=== PATIENT | male | born 1980 | race Caucasian/White ===

== ENCOUNTER 2018-04-17 15:13 | Emergency (ER) | payer SELFPAY ==
[~2018-04-17] VITALS: Ht 182.9 cm; Wt 45.5 kg
[2018-04-17 15:26] VITALS: Ht 182.9 cm; Wt 45.5 kg
[2018-04-17 16:17] LABS: BASOPHILS 0.3 % (0-2); EOSINOPHILS 2.5 % (0-7); HEMATOCRIT 42.1 % (42.0-54.0); IMMATURE GRANULOCYTES 0.2 % (0-5); LYMPHOCYTES 21.5 % (15-50); MCH 33.9 pg (26.0-34.0); MCHC 35.6 g/dL (31.0-37.0); MCV 95.2 fL (80.0-100.0); MEAN PLATELET VOLUME 11.1 fL (7.4-10.4); MONOCYTES 10.8 % (2-11); NEUTROPHILS 64.7 % (40-80); PLATELET COUNT 205 10x3/uL (130-400); RBC 4.42 10x6/uL (4.20-6.10); RDW 12.6 % (11.5-14.5); WBC 10.5 10x3/uL (4.8-10.8)
[2018-04-17 16:54] LABS: ALBUMIN 4.2 g/dL (3.4-5.0); ANION GAP 13.4 mmol/L (8-16); BILIRUBIN - TOTAL 1.51 mg/dL (0.2-1.3); CALCIUM 9.1 mg/dL (8.5-10.1); CARBON DIOXIDE 29.3 mmol/L (21.0-32.0); CREATININE - SERUM 1.3 mg/dL (0.6-1.3); POTASSIUM - SERUM 3.7 mmol/L (3.5-5.1); PROTEIN - SERUM 8.2 g/dL (6.4-8.2)
[2018-04-17 17:15] VITALS: BP 120/078
== END 2018-04-17 17:16 | disposition home or self-care (01) ==
LOC: D.ER 15:13
PROVIDERS: Emergency Medicine
DX: F41.9 Anxiety disorder, unspecified (principal); F17.200 Nicotine dependence, unspecified, uncomplicated

== ENCOUNTER 2018-04-18 01:47 | Emergency (ER) | payer MEDICAID | END 2018-04-18 02:02 | disposition left against medical advice (07) | LOC: D.ER 01:47 | DX: F41.9 Anxiety disorder, unspecified (principal); F17.200 Nicotine dependence, unspecified, uncomplicated ==

== ENCOUNTER 2020-05-15 23:04 | Emergency (ER) | payer MEDICAID ==
[~2020-05-15] VITALS: Ht 182.9 cm; Wt 72.7 kg
[2020-05-15 23:08] VITALS: BP 122/89; Ht 182.9 cm; Wt 72.7 kg
[2020-05-16 00:10] LABS: ANION GAP 12.3 mmol/L (8-16); CALCIUM 8.6 mg/dL (8.5-10.1); CARBON DIOXIDE 27.6 mmol/L (21.0-32.0); CREATININE - SERUM 1.3 mg/dL (0.6-1.3); POTASSIUM - SERUM 3.9 mmol/L (3.5-5.1)
[2020-05-16 00:16] LABS: ALBUMIN 4.1 g/dL (3.4-5.0); BILIRUBIN - TOTAL 1.31 mg/dL (0.2-1.3); PROTEIN - SERUM 8.6 g/dL (6.4-8.2)
[2020-05-16 00:17] LABS: BASOPHILS 0.3 % (0-2); EOSINOPHILS 1.5 % (0-7); HEMATOCRIT 46.5 % (42.0-54.0); IMMATURE GRANULOCYTES 0.3 % (0-5); LYMPHOCYTES 11.4 % (15-50); MCH 32.9 pg (26.0-34.0); MCHC 34.4 g/dL (31.0-37.0); MCV 95.5 fL (80.0-100.0); MEAN PLATELET VOLUME 10.6 fL (7.4-10.4); MONOCYTES 10.2 % (2-11); NEUTROPHILS 76.3 % (40-80); PLATELET COUNT 235 10x3/uL (130-400); RBC 4.87 10x6/uL (4.20-6.10); RDW 12.6 % (11.5-14.5); WBC 11.9 10x3/uL (4.8-10.8)
== END 2020-05-16 03:30 | disposition left against medical advice (07) ==
LOC: D.ER 23:04
PROVIDERS: Family Medicine
DX: F15.90 Other stimulant use, unspecified, uncomplicated (principal); F22 Delusional disorders; Z53.29 Procedure and treatment not carried out because of patient's decision for other reasons